=== PATIENT | male | born 1980 | race Caucasian/White ===

== ENCOUNTER 2023-07-08 15:10 | Outpatient (REF) | payer OTHER, SELFPAY ==
--- NOTE | ~2023-07-08 | MR_ITS ---
EXAMINATION: MR BRAIN WITHOUT CONTRAST CLINICAL INFORMATION: 42-year-old with multiple episodes of syncope. Question petit mal seizures. COMPARISON: None available. TECHNIQUE: Multiplanar multisequence MR imaging of the brain was done without IV contrast. FINDINGS: Brain Volume: Within normal limits within the limitations of qualitative assessment. Structural: No malformations. Brain and Meninges: DWI sequence demonstrates no restricted diffusion to suggest acute or subacute cerebral ischemia. A few punctate nonspecific FLAIR signal hyperintensities are seen in the subcortical frontal white matter near the convexities bilaterally. There is a nonspecific, punctate, T2 hyperintensity in the left subinsular white matter. Remainder of the brain parenchyma is normal in signal intensity and morphology. Gradient refocused imaging demonstrates no abnormal susceptibility-weighted signal loss to suggest hemorrhage, hemosiderin staining or abnormal mineralization. The mesial temporal lobe structures are bilaterally symmetric and are normal in morphology and signal intensity. Ventricles and Subarachnoid Spaces: The ventricular system and subarachnoid spaces are within normal range; there is no hydrocephalus. Orbital Structures: The visualized orbital structures are grossly unremarkable within the limitations of the study. Vascular: Signal voids are noted in the visualized major intracranial vessels. Osseous Structures, Sinuses/Mastoids, Extracranial Soft Tissues: Unremarkable MR/MR head/brain wo con IMPRESSION: 1. A few nonspecific, punctate white matter T2 hyperintensities are seen in the cerebral hemispheres as described above. 2. Otherwise unremarkable noncontrast MRI of the brain.
== END 2023-07-08 15:11 | disposition home or self-care (01) ==
LOC: HO.MRI 15:10
PROVIDERS: PCP Nurse Practitioner; Visit Provider Nurse Practitioner
DX: R55 Syncope and collapse (principal)
CPT/HCPCS: 70551

== ENCOUNTER 2023-07-11 09:56 | Outpatient (AMB) | payer OTHER, SELFPAY ==
--- NOTE | 2023-07-11 09:59 | A.OFFVIS_ITS ---
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 Pt reports whole body numbness and burning and tingling sensation on his upper and lower extremities. Pt reports he had two episodes of yellowjacket sting and had anaphylactic reaction and lost consciousness at the first episode (04/13/23) He went to ER and had Epi twice. He had the second sting on 05/30/23 and self administered epi pen and and went to ER again, did not lose consciousness. Pt did not have yellowjacket sting after that, but had similar anaphylactic symptoms including, dizziness, diaphoresis, tachycardia, and burning sensation of his arm and legs. It started 06/28/23. He was evaluated by [facility] and no Epi needed at that time, and he did not lose his consciousness. Pt started prednisone taper from 06/29/23 for 5 days. Pt continues to have blurred and tunnel vision. Pt reports daily occipital headache with neck pain, it is associated with light sensitivity, dizziness and brain fog. Pt had CT and MRI of brain and the result was normal, and all labs were normal, too. Pt reports family hx of autoimmune disease. He is also refereed to immunology. Pt states that he does not sleep well, usually 4-5 hours, having disrupted sleep. He drinks 1-2 cans of beer daily. Smokes marijuana occasionally. PFSH Family History (Updated 07/11/23 @ 10:03 by Salome Kerr CMA) Mother Heart disease Diabetes Social History (Updated 07/11/23 @ 10:03 by Salome Kerr CMA) Alcohol intake: current Alcohol intake frequency: holidays/special occasions only Patient Tobacco Use Status: Never used Tobacco Review of Systems Const All systems reviewed & are unremarkable except as noted in HPI and below ENT Reports Normal hearing present Neuro Reports Normal hearing present Physical Exam Vital Signs: Last Vital Signs Pulse 61 07/11/23 10:04 BP 118/82 07/11/23 10:04 Pulse Ox 98 07/11/23 10:04 Oxygen Delivery Method Room Air 07/11/23 10:04 BMI result Body Mass Index 28.7 Const General: cooperative and healthy appearing Orientation/consciousness: patient oriented x3 Neck Neck: Yes full ROM and Yes supple Resp Effort & Inspection: normal respiratory effort and able to speak in complete sentences Neuro General: patient oriented x3, gait normal and moves all extremities Cranial nerves: Yes Bilaterally intact EOM present, Yes Normal facial strength present, Yes Midline tongue present, Yes Symmetric palate elevation present, Yes Normal hearing present, Yes Ability to bilaterally rotate head present and Yes Ability to bilaterally elevate shoulders present Cognition (Neuro): normal cognition Gait exam (Neuro): Normal gait present Motor exam (neuro): 5/5 motor strength present throughout, Pronator motor function not present and no tremor noted Coordination: [id number] test normal and [id number] test normal Psych Appearance: grossly normal Mental Status: mental status grossly normal Speech and movement: Normal speech and movement present Affect: normal affect Attitude: cooperative Assessment & Plan Assessment & Plan (1) Paresthesia of upper and lower extremity: Code(s): R20.2 - Paresthesia of skin (2) Burning sensation of lower extremity: Code(s): R20.8 - Other disturbances of skin sensation (3) Neck pain: Code(s): M54.2 - Cervicalgia (4) Occipital headache: Code(s): R51.9 - Headache, unspecified Plan Advised patient to try gabapentin 300 mg qHS to manage the burning sensation and prevent headache. Advised patient to undergo cervical MRI. Advised patient to undergo bilateral upper and lower extremities EMG to assess neuropathy. Orders: Orders MR cervical spine w con Today M54.2 - Cervicalgia, R20.2 - Paresthesia of skin, R20.8 - Other disturbances of skin sensation, R51.9 - Headache, unspecified NE electromyogram (EMG) Today R20.2 - Paresthesia of skin, R20.8 - Other disturbances of skin sensation Medications: New gabapentin 300 mg PO BEDTIME 30 days 30 caps 1RF Coding Level of Care Code New Pt Level 4 (08546) Diagnoses Paresthesia of upper and lower extremity R20.2 Burning sensation of lower extremity R20.8 Neck pain M54.2 Occipital headache R51.9
[2023-07-11 10:04] VITALS: BP 118/82; PULSE 61; O2SAT 98; BMI 28.7
== END 2023-07-11 10:39 | disposition home or self-care (01) ==
PROVIDERS: PCP Nurse Practitioner; Visit Provider Nurse Practitioner Family
DX: R20.2 Paresthesia of skin (principal); R20.8 Other disturbances of skin sensation; M54.2 Cervicalgia; R51.9 Headache, unspecified
CPT/HCPCS: 99204

== ENCOUNTER → 2023-07-11 09:56 | Outpatient (BNVA) | payer OTHER, SELFPAY | PROVIDERS: PCP Nurse Practitioner; Visit Provider Nurse Practitioner Family ==

== ENCOUNTER 2023-12-24 06:26 | Outpatient (REF) | payer OTHER, SELFPAY ==
--- NOTE | ~2023-12-24 | US_ITS ---
EXAMINATION: US RETROPERITONEAL LIMITED (RENAL ONLY) CLINICAL INFORMATION: Syncope. Hypertension. Tachycardia. Evaluate renal cell carcinoma. COMPARISON: None available. TECHNIQUE: Real-time imaging of the kidneys. FINDINGS: RIGHT KIDNEY: 11.3 x 4.2 x 5.1 cm (SAG x AP x TRV). The kidney is normal in size, contour, and echogenicity. Renal cortical thickness is normal. No calculi or focal parenchymal lesions. No hydronephrosis. LEFT KIDNEY: 10.6 x 5.6 x 5.4 cm (SAG x AP x TRV). The kidney is normal in size, contour, and echogenicity. Renal cortical thickness is normal. No calculi or focal parenchymal lesions. No hydronephrosis. US/US renal BI IMPRESSION: Unremarkable renal ultrasound. Given concern for renal cell carcinoma, a CT or MRI renal mass protocol could be obtained for further evaluation.
== END 2023-12-24 06:27 | disposition home or self-care (01) ==
LOC: HO.UMASIMG 06:26
PROVIDERS: Visit Provider Nurse Practitioner
DX: R42 Dizziness and giddiness (principal); R00.0 Tachycardia, unspecified; R03.0 Elevated blood-pressure reading, without diagnosis of hypertension
CPT/HCPCS: 76775

== ENCOUNTER 2024-04-07 08:47 | Outpatient (REF) | payer OTHER, SELFPAY ==
--- NOTE | ~2024-04-07 | US_ITS ---
EXAMINATION: Ultrasound of right lower quadrant abdomen. CLINICAL INFORMATION: Right lower quadrant abdominal pain COMPARISON: None available TECHNIQUE: Real-time ultrasound examination of right lower abdomen. FINDINGS: Targeted ultrasound examination of right lower quadrant of abdomen shows normal blind-ending with uniform appendix measuring up to 4.8 mm in vertical diameter, compresses to 3.0 mm. No free fluid is seen in the right lower quadrant of abdomen. US/US appendix IMPRESSION: 1. Normal appendix. 2. No abnormal fluid collection is seen in the right lower quadrant of abdomen.
== END 2024-04-07 08:48 | disposition home or self-care (01) ==
LOC: HO.UMASIMG 08:47
PROVIDERS: Visit Provider Nurse Practitioner
DX: R10.30 Lower abdominal pain, unspecified (principal); D89.42 Idiopathic mast cell activation syndrome
CPT/HCPCS: 76705

== ENCOUNTER 2024-07-31 06:17 | Outpatient (REF) | payer OTHER, SELFPAY ==
--- NOTE | ~2024-07-31 | US_ITS ---
EXAMINATIONS: US SUPERFICIAL SOFT TISSUES UPPER ARM, LEFT US SUPERFICIAL SOFT TISSUES LOWER LEG, LEFT CLINICAL INDICATIONS: Tender lesions of left upper arm and left ankle. Rule out lipomas. TECHNIQUES: Limited, directed ultrasound examination of the left upper arm was performed laterally in the region of a tender lesion as indicated by the patient. Limited, directed ultrasound examination of the left lower leg was performed laterally in the region of a tender lesion as indicated by the patient. COMPARISON: None. FINDINGS: Left arm: Examination in the region of interest as indicated by the patient demonstrates a smooth, ovoid, wider than tall, 1.7 x 0.6 x 1.2 cm structure which is isoechoic to slightly hyperechoic compared with surrounding subcutaneous fat. It is located approximately 0.1-0.2 cm below the skin surface. No associated hyperemia is seen. Differential diagnosis includes, but is not limited to, lipoma. Recommend clinical correlation with follow-up if and as clinically indicated. Left lower leg: Examination in the region of interest as indicated by the patient demonstrates a smooth, ovoid, wider than tall, 2.1 x 0.4 x 1.8 cm structure which is isoechoic to slightly hyperechoic compared with surrounding subcutaneous fat. It is located approximately 2.2 cm below the skin surface. No associated hyperemia is seen. Differential diagnosis includes, but is not limited to, lipoma. Recommend clinical correlation with follow-up if and as clinically indicated. US/US extremity nonvascular IMPRESSION: Findings as above. Electronically signed by: Ramiro Hunt MD 07/31/2024 01:43 PM [facility] [place]
== END 2024-07-31 06:18 | disposition home or self-care (01) ==
LOC: HO.UMASIMG 06:17
PROVIDERS: Visit Provider Nurse Practitioner
DX: D17.9 Benign lipomatous neoplasm, unspecified (principal)
CPT/HCPCS: 76882